=== PATIENT | female | born 1960 | race African-American/Black ===

== ENCOUNTER 2017-06-03 23:05 | Emergency (ER) | payer SELFPAY ==
[~2017-06-03] VITALS: Ht 172.7 cm; Wt 95.7 kg
[2017-06-03 23:26] VITALS: BP 148/69
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
[2017-06-04] MEDS ORDERED: IBUP-1060 PO (00:17)
[2017-06-04] MEDS ORDERED: ACET-704 PO (00:17)
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
== END 2017-06-04 00:21 | disposition home or self-care (01) ==
LOC: ER 23:05
DX: S02.5XXA Fracture of tooth (traumatic), initial encounter for closed fracture (principal); S01.511A Laceration without foreign body of lip, initial encounter; M79.652 Pain in left thigh; F17.210 Nicotine dependence, cigarettes, uncomplicated; V43.62XA Car passenger injured in collision with other type car in traffic accident, initial encounter; Y93.89 Activity, other specified; Y92.410 Unspecified street and highway as the place of occurrence of the external cause; Y99.8 Other external cause status
CPT/HCPCS: 70486; 73552; 99284-25